=== PATIENT | female | born 1965 | race American Indian/Alaskan Native ===

== ENCOUNTER 2016-05-17 12:24 | Emergency (ER) | payer OTHER ==
[2016-05-17 13:02] VITALS: BP 158/98
--- NOTE | 2016-05-17 13:32 | Emergency Department Report ---
Chief Complaint: Back Pain/Injury Stated Complaint: BACK PAIN/BOTH LEG WEAK /LT HAND NUMB Time Seen by Provider: 05/17/16 13:28 - HPI History of Present Illness: 51-year-old female comes in with complaint of back pain and leg weakness. Patient reports that she was here on the and she was given a work excuse off until today. Patient reports that she did make an appointment to the appropriate specialist but that appointment is not until the . She is here requesting a work excuse until the so she can be evaluated by the specialist. Patient has medications, and all Lyrica. - Exam Vital Signs: Vital Signs 05/17/16 12:56 Temperature 98.4 F Pulse Rate 94 H Respiratory 18 Rate Blood Pressure 158/98 O2 Sat by Pulse 96 Oximetry Physical Exam: Patient is alert and oriented 3. Using a walker with wheels on it to ambulate. Cardio: Regular rate and rhythm Respiratory: Clear to auscultation Back: Tenderness paraspinal MSE screening note: Focused history and physical exam performed. Due to findings the following was ordered: Patient is evaluated by Chas MENDIETA. Encourage patient to keep her appointment with her specialist on May 24. We will give patient a work excuse until then. ED Medical Decision Making - Medical Decision Making Evaluated by this provider fast track. Patient is just requesting a work excuse until she is able to see her specialist. This provider for extend her requests for time off until May 27. Patient verbalizes understanding ED Disposition for MSE Clinical Impression: Back pain Qualifiers: Back pain location: thoracic back pain Chronicity: chronic Back pain laterality : midline Qualified Code(s): M54.6 - Pain in thoracic spine; G89.29 - Other chronic pain Disposition: DISCHARGED TO HOME OR SELFCARE Is pt being admited?: No Does the pt Need Aspirin: No Condition: Stable Additional Instructions: Encouraged to keep her appointment with her specialist on May 24. Continue taking her tramadol and Lyrica as prescribed. Forms: Work/School Release Form(ED)
== END 2016-05-17 13:39 | disposition home or self-care (01) ==
LOC: ED 12:24
DX: M54.6 Pain in thoracic spine (principal); G89.29 Other chronic pain
CPT/HCPCS: 99282